=== PATIENT | female | born 1980 | race Caucasian/White ===

== ENCOUNTER 2018-09-25 20:34 | Emergency (ER) | payer MEDICAID, OTHER, SELFPAY ==
[~2018-09-25] VITALS: Ht 167.6 cm; Wt 77.3 kg
[~2018-09-25 20:34] MED LIST: ADDE10TA; ADV500INH INH; ADVA1AER2; ALBU1.25 INH; ALBU17IN INH; ALBU17IN2 INH; ALEV220C2 PO; AZEL0.1S3; CLAR10CA3 PO; CLAR1TAB2 PO; DICY20TA11 PO; PARO12TACR; PROV90AE; SALINE EYE OU; Seroquel; TRAZ-252 PO; TRAZ100T; ZOLO100T PO; [UNRECOGNIZED DRUG - OTHER] OU
[2018-09-25 21:48] LABS: HEMOGLOBIN 15.2 g/dl (12.0-15.5); MEAN CORPUSCULAR HEMOGLOBIN 30.3 pg (27.0-33.0); MEAN CORPUSCULAR VOLUME 91.8 fl (80.0-96.0); PLATELET COUNT, AUTOMATED 279 10^3/uL (150-450); RED BLOOD COUNT 5.01 10^6/uL (4.00-5.40); WHITE BLOOD COUNT 10.1 10^3/uL (4.0-10.0)
[2018-09-25 22:04] LABS: AMPHETAMINES LEVEL URINE NEGATIVE (NEGATIVE); BARBITURATES URINE NEGATIVE (NEGATIVE); BENZODIAZEPINES URINE NEGATIVE (NEGATIVE); CANNABINOIDS URINE NEGATIVE (NEGATIVE); COCAINE METABOLITE URINE NEGATIVE (NEGATIVE); METHADONE URINE NEGATIVE (NEGATIVE); OPIATES URINE NEGATIVE (NEGATIVE); PHENCYCLIDINE URINE NEGATIVE (NEGATIVE)
[2018-09-25] MEDS ORDERED: NICOTINE 21MG/24HR 1 EA TRANSDERMAL TD ONE (22:15)
[2018-09-25 22:18] LABS: ALBUMIN 4.1 GM/DL (3.2-5.2); ALT/SGPT 18 U/L (12-78); BILIRUBIN,DIRECT < 0.1 MG/DL (0.0-0.2); BILIRUBIN,TOTAL 0.3 MG/DL (0.2-1.0); BLOOD UREA NITROGEN 17 MG/DL (7-18); CALCIUM LEVEL 8.4 MG/DL (8.5-10.1); CARBON DIOXIDE LEVEL 26 MEQ/L (21-32); CHLORIDE LEVEL 108 MEQ/L (98-107); CREATININE FOR GFR 0.94 MG/DL (0.55-1.30); GLOMERULAR FILTRATION RATE > 60.0 (>58); GLUCOSE, FASTING 81 MG/DL (70-100); POTASSIUM SERUM 3.8 MEQ/L (3.5-5.1); SALICYLATE LEVEL 3.4 MG/DL (5.0-30.0); SODIUM LEVEL 140 MEQ/L (136-145); TOTAL PROTEIN 7.4 GM/DL (6.4-8.2)
[2018-09-25 22:19] LABS: ACETAMINOPHEN LEVEL < 2.0 UG/ML (10.0-30.0); ETHYL ALCOHOL (ETHANOL) < 0.003 % (0.000-0.010)
[2018-09-25 23:04] VITALS: BP 136/79
== END 2018-09-25 23:06 | disposition home or self-care (01) ==
LOC: M ED 20:34
DX: F32.9 Major depressive disorder, single episode, unspecified (principal); F43.0 Acute stress reaction; J44.9 Chronic obstructive pulmonary disease, unspecified; F19.10 Other psychoactive substance abuse, uncomplicated; Z85.41 Personal history of malignant neoplasm of cervix uteri; Z72.0 Tobacco use; Z79.899 Other long term (current) drug therapy; Z88.0 Allergy status to penicillin; Z88.8 Allergy status to other drugs, medicaments and biological substances; Z91.018 Allergy to other foods
CPT/HCPCS: 36415; 80048; 80076; 80307; 84443; 85027; 99284; G0480

== ENCOUNTER → 2025-02-13 | Outpatient (CLI) | payer MEDICAID ==
[~2025-02-13] MED LIST changes: -ADV500INH INH; +ADVA1AER10 INH; -DICY20TA11 PO; +DICY20TA20 PO
== END ==
LOC: M OUTALCOH 12:47
PROVIDERS: ATTEND Psychiatry & Neurology Psychiatry
DX: Z03.89 Encounter for observation for other suspected diseases and conditions ruled out (principal)

== ENCOUNTER 2025-02-20 10:36 | Outpatient (RCR) | payer MEDICAID | END 2025-02-24 | LOC: M OUTALCOH 10:36 | PROVIDERS: ATTEND Psychiatry & Neurology Psychiatry | DX: Z03.89 Encounter for observation for other suspected diseases and conditions ruled out (principal) ==